=== PATIENT | female | born 1930 | race Caucasian/White ===

== ENCOUNTER → 2016-03-28 | Outpatient (CLI) | payer OTHER ==
[~2016-03-28] MED LIST: AMLO-110 PO; ASCA500 PO; CALC-51 PO; CHOL1000 PO; CO Q10 PO; FISHOIL PO; FLAX12003 PO; JOINT FORMULA PO; METO25TA3 PO; PTU50 PO; TRAM-10 PO; UBIQ1CAP PO; [UNRECOGNIZED DRUG - CODE] PO; [UNRECOGNIZED DRUG - OTHER] PO
[2016-03-28 10:01] LABS: THYROID STIMULATING HORMONE 0.012 uIu/ml (0.300-4.500)
== END | disposition home or self-care (01) ==
LOC: C.LABFOXMH 09:18
PROVIDERS: ATTEND Internal Medicine Endocrinology, Diabetes & Metabolism
DX: E05.90 Thyrotoxicosis, unspecified without thyrotoxic crisis or storm (principal)

== ENCOUNTER → 2016-05-01 | Outpatient (CLI) | payer OTHER ==
--- NOTE | 2016-05-01 12:19 | DIAGNOSTIC IMAGING REPORT ---
LUMBAR SPINE MRI HISTORY: LUMBAR RADICULOPATHY TECHNIQUE: Multiplanar multisequence MRI of the lumbar spine was performed without the use of contrast. COMPARISON: Lumbar spine 03/24/2016. FINDINGS: For the purpose of the report the L5-S1 disc space will be located on axial image 27 of 30. Levoscoliosis of the lumbar spine. There is 2 mm of anterolisthesis of L4 and L5. The conus terminates at the L1-L2 disc space. There is posterior decompression and fusion from L3 through S1 with pedicle screws and rods. There is a fluid collection at the laminectomy sites which measures 5.5 x 3.0 x 2.0 cm. This does not clearly connect to the thecal sac and favors a postoperative seroma. This does not result in mass effect along the thecal sac. The visualized retroperitoneal soft tissues are unremarkable. There are severe disc space narrowing within the lower thoracic spine with associated broad-based posterior disc bulges resulting in mild to moderate central canal at T10-11, T11-T12, and T12-L1. There is clumping of the nerve roots from the L3-S1 level consistent with arachnoiditis. There is also severe disc space narrowing at L1-L2 and L2-L3. L1-L2: Broad-based posterior disc bulge with ligamentum and facet hypertrophy resulting in mild to moderate central canal and moderate bilateral neural foraminal narrowing. There is also a central/right paracentral focal area of signal abnormality at the epidural space posterior to the L2 vertebral body which is both T1 and T2 hyperintense. Therefore, this is consistent with fat. This measures 10 x 6 mm. L2-L3: Tiny broad-based posterior disc bulge with facet hypertrophy resulting in mild central canal and moderate bilateral neural foraminal narrowing. L3-L4: No central canal narrowing. Mild bilateral neural foraminal narrowing due to the facet hypertrophy. L4-L5: No central canal narrowing. Mild right-sided neural foraminal narrowing. L5-S1: No central canal or neural foraminal narrowing. IMPRESSION: 1. Posterior decompression and fusion from L3 through S1 with pedicle screws and rods. There is no significant central canal narrowing at the levels. However, there is clumping of the nerve root at this levels consistent with an arachnoiditis. 2. Fluid collection at the laminectomy sites likely represents a seroma. 3. Severe degenerative disease within the lower thoracic and upper lumbar spine as described above most pronounced at the L1-L2 level where there is associated moderate central canal and moderate bilateral neural foraminal narrowing. 4. A 10 x 6 mm fat-containing epidural lesion posterior to the L2 vertebral body. This may represent a small lipoma. This does not result in displacement of the nerve roots at this level. Electronically signed by: Roberto Jaimes M.D. 05/01/2016 12:17 PM Dictated Date/Time: 05/01/2016 11:59 AM
== END | disposition home or self-care (01) ==
LOC: C.MRIBC 10:09
PROVIDERS: ATTEND Internal Medicine
DX: M54.16 Radiculopathy, lumbar region (principal)

== ENCOUNTER → 2016-06-30 | Outpatient (CLI) | payer OTHER ==
--- NOTE | 2016-06-30 13:28 | DIAGNOSTIC IMAGING REPORT ---
L-SPINE MIN 4 VIEWS ROUTINE CLINICAL HISTORY: BACK PAIN COMPARISON STUDY: 03/24/2016 FINDINGS: There are postsurgical changes of a laminectomy and spinal fusion from the L3-S1 levels. There is posterior pedicle screw fixation. There is a grade 1 spondylolisthesis of L4 and L5. There is a thoracolumbar S shaped scoliosis. There are no acute fractures. There are degenerative changes with multilevel disc space narrowing and osteophyte formation. There is a total left hip arthroplasty. IMPRESSION: Postsurgical change. Advanced multilevel degenerative change. No acute fractures. Electronically signed by: Carlos Beaulieu M.D. 06/30/2016 1:26 PM Dictated Date/Time: 06/30/2016 1:24 PM
== END | disposition home or self-care (01) ==
LOC: C.RADBC 13:01
PROVIDERS: ATTEND Internal Medicine
DX: M54.5 Low back pain (principal); E78.00 Pure hypercholesterolemia, unspecified

== ENCOUNTER → 2016-06-30 | Outpatient (CLI) | payer OTHER ==
[2016-06-30 09:11] LABS: BLOOD UREA NITROGEN 24 mg/dl (7-18); GLUCOSE 90 mg/dl (70-99)
[2016-06-30 09:12] LABS: ALT/SGPT 28 U/L (12-78); BUN/CREATININE RATIO 21.9 (10-20); CARBON DIOXIDE 28 mmol/L (21-32); CHLORIDE 108 mmol/L (98-107); CHOLESTEROL 250 mg/dl (0-200); POTASSIUM 4.3 mmol/L (3.5-5.1); SODIUM 143 mmol/L (136-145); TRIGLYCERIDES 126 mg/dl (0-150); VERY LOW DENSITY LIPOPROT CALC 25 mg/dl
[2016-06-30 09:13] LABS: CALCIUM 9.7 mg/dl (8.5-10.1)
[2016-06-30 09:14] LABS: ALB/GLOB RATIO 1.1 (0.9-2); ALKALINE PHOSPHATASE 76 U/L (45-117); AST/SGOT 25 U/L (15-37); CHOLESTEROL/HDL RATIO 2.8; HDL CHOLESTEROL 88 mg/dl; LDL CHOLESTEROL CALCULATED 137 mg/dl
== END ==
LOC: C.LABFOXMH 08:47
PROVIDERS: ATTEND Internal Medicine
DX: E78.00 Pure hypercholesterolemia, unspecified (principal)

== ENCOUNTER → 2016-07-12 | Day surgery (SDC) | payer OTHER ==
[2016-07-04 13:26] VITALS: Ht 156.2 cm; Wt 58.2 kg
[~2016-07-12] VITALS: Ht 156.2 cm; Wt 58.2 kg
[~2016-07-12] MED LIST changes: -ASCA500 PO; -CO Q10 PO; -FLAX12003 PO; +LIDOCAINE HCL 2% 2 ML VIAL (20MG/ML) ONE; +PROPOFOL IV EMULSION 10 MG/ML 20 ML VIAL IV ONE; +SODIUM CHLORIDE 0.9% 500ML 500 ML IV ONE; -[UNRECOGNIZED DRUG - OTHER] PO
--- NOTE | 2016-07-12 14:24 | Endo History and Physical ---
History & Physical Date of Service: July 12, 2016. Chief Complaint: dysphagia Referring Physician: Dr. Vences History of Present Illness dysphagia Past Medical History Arthritis, Hypertension Past Surgical History Hx Cardiac Surgery: No Hx Internal Defibrillator: No Hx Pacemaker: No Hx Abdominal Surgery: Yes (BOWEL OBSTRUCTION RELEASE, CONCEPCION BSO) Hx of Implantable Prosthesis: No Hx Post-Op Nausea and Vomiting: No Hx Cancer Surgery: No Hx Thoracic Surgery: No Hx Orthopedic: Yes (L3-S1 FUSION, RT TSA, LT JAVID, LT/RT BUNIONECTOMY) Hx Urinary Tract Surgery: No Family History None Social History Smoking Status: Never Smoker Hx Substance Use: No Hx Alcohol Use: Yes (1 GLASS WINE DAILY) Allergies Coded Allergies: Hornet Venom (Verified Allergy, Severe, ANAPHYLAXIS, 07/04/16) Wasp (Verified Allergy, Severe, ANAPHYLAXIS, 07/04/16) Sulfa Antibiotics (Verified Allergy, Mild, "SULFA DRUGS": DERMATITIS, 07/04) Amoxicillin (Verified Allergy, Unknown, RASH AND ITCHING, 07/04/16) Erythromycin (Verified Allergy, Unknown, RASH AND ITCHING, 07/04/16) Penicillins (Verified Allergy, Unknown, RASH AND ITCHING, 07/04/16) Current Medications Reported Home Medications Medications Dose Route/Sig Max Daily Dose Days Date Category Grape Seed (Bioflavonoid Products) 1 Cap Cap 1 Cap PO QAM 07/04/16 Reported [Joint Formula] 1 Tab PO QAM 07/04/16 Reported Ultra Coq10 (Ubiquinone) 75 Mg Cap 1 Cap PO QAM 07/04/16 Reported Vitamin D3 (Cholecalciferol) 1,000 Unit Tab 1 Tab PO QAM 07/04/16 Reported Ultram (Tramadol HCl) 50 Mg Tab 5 Tab PO TID PRN 07/04/16 Reported Ptu (Propylthiouracil) 50 Mg Tab 50 Mg PO QAM 07/04/16 Reported [Calcium] 1 Tab PO BID 11/24/15 Reported [place]-3 (Fish Oil) Oil 1-2 Cap PO QAM 01/01/12 Reported Toprol-Xl (Metoprolol Succinate) 25 Mg Tabcr 0.5 Tab PO QAM 03/10/11 Reported Norvasc (Amlodipine Besylate) 5 Mg Tab 5 Mg PO AFTERNOON 08/06/10 Reported Vital Signs Weight (Kilograms): 58.18 Height (Feet): 5 Height (Inches): 1.5 Date Time Temp Pulse Resp B/P Pulse Ox O2 Delivery O2 Flow Rate FiO2 07/12/16 13:40 36.6 58 20 155/79 95 Room Air Physical Exam AAOx3 Nls1s2 Lungs CTA Abd soft NT/ND + BS - CCE Assessment and Plan EGD with possible dilation
--- NOTE | 2016-07-12 14:40 | Discharge Instructions ---
Endoscopy Patient Instructions Date / Procedure(s) Performed July 12, 2016. EGD Allergy Information Coded Allergies: Hornet Venom (Verified Allergy, Severe, ANAPHYLAXIS, 07/04/16) Wasp (Verified Allergy, Severe, ANAPHYLAXIS, 07/04/16) Sulfa Antibiotics (Verified Allergy, Mild, "SULFA DRUGS": DERMATITIS, 07/04) Amoxicillin (Verified Allergy, Unknown, RASH AND ITCHING, 07/04/16) Erythromycin (Verified Allergy, Unknown, RASH AND ITCHING, 07/04/16) Penicillins (Verified Allergy, Unknown, RASH AND ITCHING, 07/04/16) Discharge Date / Findings July 12, 2016. esophagitis Schatzki ring gastric ulcers HH Medication Instructions Restart Stopped Medication(s): Reported Home Medications Medications Dose Route/Sig Max Daily Dose Days Date Category Grape Seed (Bioflavonoid Products) 1 Cap Cap 1 Cap PO QAM 07/04/16 Reported [Joint Formula] 1 Tab PO QAM 07/04/16 Reported Ultra Coq10 (Ubiquinone) 75 Mg Cap 1 Cap PO QAM 07/04/16 Reported Vitamin D3 (Cholecalciferol) 1,000 Unit Tab 1 Tab PO QAM 07/04/16 Reported Ultram (Tramadol HCl) 50 Mg Tab 5 Tab PO TID PRN 07/04/16 Reported Ptu (Propylthiouracil) 50 Mg Tab 50 Mg PO QAM 07/04/16 Reported [Calcium] 1 Tab PO BID 11/24/15 Reported [place]-3 (Fish Oil) Oil 1-2 Cap PO QAM 01/01/12 Reported Toprol-Xl (Metoprolol Succinate) 25 Mg Tabcr 0.5 Tab PO QAM 03/10/11 Reported Norvasc (Amlodipine Besylate) 5 Mg Tab 5 Mg PO AFTERNOON 08/06/10 Reported Reported Home Medications Medications Dose Route/Sig Max Daily Dose Days Date Category Grape Seed (Bioflavonoid Products) 1 Cap Cap 1 Cap PO QAM 07/04/16 Reported [Joint Formula] 1 Tab PO QAM 07/04/16 Reported Ultra Coq10 (Ubiquinone) 75 Mg Cap 1 Cap PO QAM 07/04/16 Reported Vitamin D3 (Cholecalciferol) 1,000 Unit Tab 1 Tab PO QAM 07/04/16 Reported Ultram (Tramadol HCl) 50 Mg Tab 5 Tab PO TID PRN 07/04/16 Reported Ptu (Propylthiouracil) 50 Mg Tab 50 Mg PO QAM 07/04/16 Reported [Calcium] 1 Tab PO BID 11/24/15 Reported [place]-3 (Fish Oil) Oil 1-2 Cap PO QAM 01/01/12 Reported Toprol-Xl (Metoprolol Succinate) 25 Mg Tabcr 0.5 Tab PO QAM 03/10/11 Reported Norvasc (Amlodipine Besylate) 5 Mg Tab 5 Mg PO AFTERNOON 08/06/10 Reported Provider Instructions Activity Restrictions - No exercising or heavy lifting for 24 hours. - Do not drink alcohol the day of the procedure. - Do not drive a car or operate machinery until the day after the procedure. - Do not make any important decisions or sign important papers in 24 hours after the procedure. Following Day: - Return to full activity which may include returning to work/school. Diet Start your diet with liquids and light foods (jello, soup, juice, toast). Then eat your usual diet if not nauseated. Treatment For Common After Affects For mild abdominal pain, bloating, or excessive gas: - Rest - Eat lightly - Lie on right side Follow-Up Information Follow-up with Dr. Vences as scheduled Anesthesia Information What You Should Know You have had a procedure that required some medicine to reduce anxiety and discomfort. This treatment is called moderate sedation. After receiving the treatment, you may be sleepy, but you will be able to breathe on your own. The effects of the treatment may last for several hours. Follow these instructions along with Activity/Diet recommendations noted above: * Do NOT do anything where dizziness or clumsiness would be dangerous. * Rest quietly at home today, then you can be up and about tomorrow. * Have a responsible person stay with you the rest of today. * You may have had an I.V. today. If so, you may take the dressing off later today. Recommendations Call your doctor if: * Trouble breathing * Continuous vomiting for more than 24 hours * Temperature above 101 degrees * Severe abdominal pain or bloating * Pain not relieved by pain medicine ordered * There is increased drainage or redness from any incision * A large amount of rectal bleeding greater than 2-3 tablespoons. (If you had a polyp/s removed or have hemorrhoids, a small amount of blood - from the rectum is to be expected.) * You have any unanswered questions or concerns. IN THE EVENT OF A SERIOUS EMERGENCY, GO TO THE NEAREST EMERGENCY ROOM Your discharge instructions were prepared by provider Umair Chapman. Patient Instructions Signature Page Brody Larsen Patient (or Guardian) Signature/Date: I have read and understand the instructions given to me by my caregivers. Caregiver/RN/Doctor Signature/Date: The above-named patient and/or guardian has received patient instructions on this date. + Original Patient Signature Page (only) stays with chart. Please make copy for patient.
--- NOTE | 2016-07-12 14:51 | GI REPORT ---
Procedure Date: 07/12/2016 2:15 PM Procedure: Upper GI endoscopy Indications: Esophageal dysphagia Medicines: Propofol per Anesthesia Complications: No immediate complications. Estimated blood loss: Minimal. Estimated Blood Loss: Estimated blood loss was minimal. Procedure: Pre-Anesthesia Assessment: - Prior to the procedure, a History and Physical was performed, and patient medications and allergies were reviewed. The patient's tolerance of previous anesthesia was also reviewed. The risks and benefits of the procedure and the sedation options and risks were discussed with the patient. All questions were answered, and informed consent was obtained. Prior Anticoagulants: The patient has taken no previous anticoagulant or antiplatelet agents. ASA Grade Assessment: II - A patient with mild systemic disease. After reviewing the risks and benefits, the patient was deemed in satisfactory condition to undergo the procedure. After obtaining informed consent, the endoscope was passed under direct vision. Throughout the procedure, the patient's blood pressure, pulse, and oxygen saturations were monitored continuously. The scope was introduced through the mouth, and advanced to the second part of duodenum. The upper GI endoscopy was accomplished without difficulty. The patient tolerated the procedure well. Findings: The upper third of the esophagus and middle third of the esophagus were normal. LA Grade B (one or more mucosal breaks greater than 5 mm, not extending between the tops of two mucosal folds) esophagitis with no bleeding was found 34 to 35 cm from the incisors. A low-grade of narrowing Schatzki ring (acquired) was found at the gastroesophageal junction. A guidewire was placed and the scope was withdrawn. Dilation was performed with a Savary dilator with mild resistance at 54 Fr. Estimated blood loss was minimal. Three non-bleeding superficial gastric ulcers with no stigmata of bleeding were found in the gastric antrum. The largest lesion was 10 mm in largest dimension. Biopsies were taken with a cold forceps for histology. The examined duodenum was normal. Retained gastric contents are not identified on this exam. The cardia and gastric fundus were normal on retroflexion. Impression: - Normal upper third of esophagus and middle third of esophagus. - LA Grade B reflux esophagitis. - Low-grade of narrowing Schatzki ring. Dilated. - Non-bleeding gastric ulcers with no stigmata of bleeding. Biopsied. - Normal examined duodenum. Recommendation: - Discharge patient to home (ambulatory). - Patient has a contact number available for emergencies. The signs and symptoms of potential delayed complications were discussed with the patient. Return to normal activities tomorrow. Written discharge instructions were provided to the patient. - Resume regular diet. - Continue present medications. - Use Prilosec (omeprazole) 40 mg PO daily. - Repeat the upper endoscopy for surveillance based on pathology results. - Return to GI clinic as previously scheduled. MD Umiar Hernandez MD 07/12/2016 2:51:29 PM This report has been signed electronically. Note Initiated On: 07/12/2016 2:15 PM I attest to the content of the Intraoperative Record and orders documented therein, exceptions below
[2016-07-12 15:12] VITALS: BP 151/90; PULSE 55; O2SAT 96
--- NOTE | 2016-07-12 15:21 | Anesthesiology Progress Note ---
Anesthesia Post Op Note Date & Time July 12, 2016 at 15:21 Vital Signs Pain Intensity: 2 Vital Signs Past 12 Hours Date Time Temp Pulse Resp B/P Pulse Ox O2 Delivery O2 Flow Rate FiO2 07/12/16 14:56 61 20 131/66 95 Room Air 07/12/16 14:41 62 20 100/52 96 Room Air 07/12/16 13:40 36.6 58 20 155/79 95 Room Air Notes Mental Status: alert / awake / arousable, participated in evaluation Pt Amnestic to Procedure: Yes Nausea / Vomiting: adequately controlled Pain: adequately controlled Airway Patency, RR, SpO2: stable & adequate BP & HR: stable & adequate Hydration State: stable & adequate Anesthetic Complications: no major complications apparent
== END | disposition home or self-care (01) ==
LOC: C.GI 13:07
PROVIDERS: ATTEND Internal Medicine Gastroenterology
DX: R13.10 Dysphagia, unspecified (principal); K21.0 Gastro-esophageal reflux disease with esophagitis; K22.2 Esophageal obstruction; K25.9 Gastric ulcer, unspecified as acute or chronic, without hemorrhage or perforation; I10 Essential (primary) hypertension; M19.90 Unspecified osteoarthritis, unspecified site; Z68.24 Body mass index [BMI] 24.0-24.9, adult; Z88.1 Allergy status to other antibiotic agents; Z88.0 Allergy status to penicillin; Z88.2 Allergy status to sulfonamides; Z96.642 Presence of left artificial hip joint; Z98.890 Other specified postprocedural states

== ENCOUNTER → 2016-08-21 | Outpatient (CLI) | payer OTHER ==
[~2016-08-21] MED LIST changes: -LIDOCAINE HCL 2% 2 ML VIAL (20MG/ML) ONE; -PROPOFOL IV EMULSION 10 MG/ML 20 ML VIAL IV ONE; -SODIUM CHLORIDE 0.9% 500ML 500 ML IV ONE; -TRAM-10 PO
[2016-08-21 10:37] LABS: ALKALINE PHOSPHATASE 85 U/L (45-117); ALT/SGPT 30 U/L (12-78); AST/SGOT 29 U/L (15-37); THYROID STIMULATING HORMONE 0.162 uIu/ml (0.300-4.500)
[2016-08-24 15:36] LABS: TSI <89 % baseline (<140)
== END | disposition home or self-care (01) ==
LOC: C.LABFOXMH 08:37
PROVIDERS: ATTEND Internal Medicine Endocrinology, Diabetes & Metabolism
DX: E04.2 Nontoxic multinodular goiter (principal)

== ENCOUNTER → 2017-05-10 | Outpatient (CLI) | payer OTHER ==
[~2017-05-10] MED LIST changes: -AMLO-110 PO
[2017-05-10 12:01] LABS: ALBUMIN 3.5 gm/dl (3.4-5.0); ALT/SGPT 27 U/L (12-78); BLOOD UREA NITROGEN 22 mg/dl (7-18); CALCIUM 9.8 mg/dl (8.5-10.1); CARBON DIOXIDE 30 mmol/L (21-32); GLUCOSE 90 mg/dl (70-99); LIPASE 150 U/L (73-393); POTASSIUM 4.8 mmol/L (3.5-5.1); SODIUM 140 mmol/L (136-145)
[2017-05-10 12:04] LABS: ALKALINE PHOSPHATASE 78 U/L (45-117); AST/SGOT 22 U/L (15-37); TOTAL PROTEIN 6.7 gm/dl (6.4-8.2)
== END | disposition home or self-care (01) ==
LOC: C.LABFOXMH 11:27
PROVIDERS: ATTEND Internal Medicine Hospice and Palliative Medicine
DX: R10.11 Right upper quadrant pain (principal)

== ENCOUNTER → 2017-05-18 | Outpatient (CLI) | payer OTHER ==
[2017-05-18 11:13] LABS: THYROXINE (T4) 6.6 mcg/dl (4.5-10.9)
== END | disposition home or self-care (01) ==
LOC: C.LABFOXMH 07:39
PROVIDERS: ATTEND Internal Medicine
DX: E03.9 Hypothyroidism, unspecified (principal)

== ENCOUNTER 2021-05-31 10:39 | Observation (INO) ==
--- NOTE | 2021-05-09 12:13 | PAT Medication Instructions ---
Medication Instructions Date of Service May 09, 2021 Home Medications propylthiouracil 50 mg tablet 50 mg PO BID diclofenac sodium 1 % topical gel (Voltaren Arthritis Pain) 2 g TOPICAL BID metoprolol succinate 25 mg tablet,extended release 24 hr 25 mg PO QAM multivitamin (Multiple Vitamins) 1 tab PO QAM acetaminophen 500 mg tablet 500 mg PO Q6H PRN meloxicam 15 mg tablet (Mobic) 15 mg PO QAM ASK your surgeon for instructions meloxicam 15 mg tablet (Mobic) 15 mg PO QAM STOP taking 24 hours before surgery diclofenac sodium 1 % topical gel (Voltaren Arthritis Pain) 2 g TOPICAL BID DO NOT take the morning of surgery multivitamin (Multiple Vitamins) 1 tab PO QAM Take morning of surgery With a small sip of water, OTHERWISE NOTHING TO EAT OR DRINK AFTER MIDNIGHT: propylthiouracil 50 mg tablet 50 mg PO BID metoprolol succinate 25 mg tablet,extended release 24 hr 25 mg PO QAM acetaminophen 500 mg tablet 500 mg PO Q6H PRN(okay to take up to 4 hours prior to surgery if needed) Take evening before surgery propylthiouracil 50 mg tablet 50 mg PO BID acetaminophen 500 mg tablet 500 mg PO Q6H PRN(if needed) Other Notes If you have any questions please call us at [phone] or [phone] or [phone] or [phone]
--- NOTE | 2021-05-10 13:03 | Anesthesiology Consultation ---
Date of Service May 10, 2021 Assessment & Plan (1) Encounter for pre-operative examination: Chart Review Chart Review: Acceptable Risk for Surgery (pending preop Covid testing results ) and Patient seen in Pre Admission Testing -Will fax preop testing to PCP for continuity care per patient request -Due to age- patient is not a Same Day Joint candidate -Discussed with Dr. Bello- hx of MVP with mild to moderate MR on 2015 ECHO- faint I/ murmur- patient can proceed as scheduled Per PAT appt on 05/10/21, patient recently returned from [place]- has private home- no large group activities. Pt resides at [facility]. No known Covid positive exposures or Covid related symptoms. No known Covid infection in the past 90 days. Pt is vaccinated for Covid. Preop Covid testing scheduled 05/27/21= will await results. Educated on importance of self quarantining, social distancing and wearing mask in public for the patient one week prior to surgery and after Covid testing done Teaching & Discussion Pre-Anesthesia Teaching/Discussion Notes: Instructed NPO after midnight before surgery,except medications with 15 cc of water. Medication instructions provided according to the PAT guidelines. History Surgery Operation Date: 05/31/21 09:05 Proposed Procedures p Right Anterior Total Hip Arthroplasty - Andrei Andujar, Height/Weight Height: 5 ft 1 in Weight: 56.7 kg Allergies Allergy/AdvReac Type Severity Reaction Status Date / Time hornet venom Allergy Severe ANAPHYLAXIS Verified 05/09/21 11:07 amoxicillin Allergy Intermediate RASH AND Verified 05/09/21 11:07 ITCHING erythromycin base Allergy Intermediate RASH AND Verified 05/09/21 11:07 ITCHING oxycodone Allergy Intermediate Rash and Verified 05/09/21 11:07 itching Penicillins Allergy Intermediate RASH AND Verified 05/09/21 11:07 ITCHING Sulfa (Sulfonamide Allergy Mild "SULFA Verified 05/09/21 11:07 Antibiotics) DRUGS": DERMATITIS hylan G-F 20 [From Synvisc] Allergy Unknown KNEE Verified 05/09/21 11:09 SWELLING WITH INJECTION Medications Home Medications Medication Instructions Recorded Confirmed Last Taken propylthiouracil 50 mg tablet 50 mg PO BID 02/20/19 05/09/21 09/21/20 diclofenac sodium 1 % topical gel 2 g TOPICAL BID g 10/25/20 05/09/21 Unknown (Voltaren Arthritis Pain) metoprolol succinate 25 mg 25 mg PO QAM tab 10/25/20 05/09/21 Unknown tablet,extended release 24 hr multivitamin (Multiple Vitamins) 1 tab PO QAM 10/25/20 05/09/21 Unknown acetaminophen 500 mg tablet 500 mg PO Q6H PRN 05/09/21 05/09/21 Unknown meloxicam 15 mg tablet (Mobic) 15 mg PO QAM 05/09/21 05/09/21 Unknown Past Medical History Medical History (Updated 05/11/21 @ 09:58 by Jessica Muhammad PA-C) Cardiac murmur Chronic back pain Degenerative disc disease Dysphagia HX- rare occurrence- usually occurs when trying to talk and swallow GERD (gastroesophageal reflux disease) Occasional Hypertension Hyperthyroidism Follows with PCP currently-GRAVES DISEASE MVP (mitral valve prolapse) "HX SINCE CHILD" Mild to moderate MR per 2016 ECHO Spinal stenosis Thyroid nodule Under observation Trigeminal neuralgia HX LEFT SIDE-RESOLVED No current issues Exercise / Class Metabolic Activity II 4-5 Yardwork/Stairs/Walk up hill (one flight of stairs -no chest pain or SOB ) Past Family History Family History Father FHx: heart disease Mother FHx: lung cancer Past Surgical History Surgical History Fusion of spine Lumbar History of anesthesia reaction "long time to get rid of it" History of appendectomy History of cataract surgery bilateral History of colonoscopy History of esophageal dilatation History of esophagogastroduodenoscopy (EGD) History of foot surgery History of tonsillectomy History of total hip arthroplasty left History of total shoulder replacement right Nausea and vomiting after administration of anesthetic agent S/P epidural steroid injection S/P laparotomy with removal of adhesions r/t small bowel obstructions S/P CONCEPCION-BSO S/P thyroid biopsy Past Anesthesia History No Hx of Anesthesia Complications (with exception to PONV; feels that "anesthesia takes longer to get out of her body" ) and No Family Hx of Anesthesia Complications History of PONV History of PONV and Hx of Motion Sickness Social History Smoking Status: Never smoker Do You Dip or Chew Tobacco: No Hx Alcohol Use: Yes Alcohol type: wine alcohol intake frequency: 0-2 drinks per day (1 glass/day ) Hx Substance Use: No substance use type: does not use Review of Systems Patient denies chest pain, shortness of breath, dyspnea on exertion, cough, wheezing, palpitations. No hx of seizures, stroke, PR, apnea/snoring. No hx of blood clots or blood transfusions Physical Exam Vital Signs VITALS BP 160/90 (manually- usually well controlled- checks daily- usually 120's/80's- anxious about surgery) P 66 TEMP 97.9 SP02 96% RESP 16 Constitutional no acute distress ENMT Mouth: no TMJ clicking Thyromental Distance: > or= 3.5 Finger Breadths (3.5) Mallampati Class: III Neck + limited neck extension (moderate to severe ) Respiratory normal respiratory effort; no respiratory distress Auscultation: lungs clear to auscultation bilaterally; no wheezes Cardiovascular Rate/Rhythm: regular rate and regular rhythm Heart Sounds: + murmur (I/ murmur (faint)) Vessels: no carotid bruit Musculoskeletal Spine: no pain with cervical ROM Extremities: extremities normal to inspection Psychiatric Orientation: alert Lab Results Anesthesia Preop Results Results Anesthesia Widget: WBC 5.40 K/uL (4.8-10.8) 05/10/21 Hgb 12.6 g/dL (12.0-16.0) 05/10/21 Hct 37.9 % (37-47) 05/10/21 Plt 318 K/uL (130-400) 05/10/21 Na 137 mmol/L (136-145) 05/10/21 K 4.4 mmol/L (3.5-5.1) 05/10/21 Cl 104 mmol/L (98-107) 05/10/21 CO2 26 mmol/L (21-32) 05/10/21 BUN 37 mg/dl (6-23) H 05/10/21 Creat 1.08 mg/dl (0.6-1.2) 05/10/21 Glucose Level 89 mg/dl (70-99(Fasting)) 05/10/21 PT 10.5 Seconds (9.0-12.0) 05/10/21 PTT 26.6 Seconds (21.0-31.0) 05/10/21 INR 1.0 (0.9-1.1) 05/10/21 TSH 0.300 uIu/ml (0.300-4.500) 05/10/21 Free T4 0.81 ng/dl (0.61-1.60) 05/10/21 Blood Type O Positive 05/10/21 Antibody Screen NEGATIVE 05/10/21 Testing Electrocardiogram Date: 05/10/21 Findings: + NSR @ (65bpm ) Normal EKG per cardio Chest X-Ray Date: 05/10/21 Compared to the previous examination, there is a decreased inspiratory effort with otherwise no acute chest disease. Echocardiogram Date: 11/24/15 EF: 55-60% LV Function: normal (Low normal ) RWMA: + none Other Findings: + LVH (mild/concentric ) and + diastolic dysfunction (Grade I ) Valvular Disease: + MR (mild to moderate ) LA moderately dilated. Mild to moderate TR. RVSP is elevated at 30-40mmHg. Mild AR. Compared to study from 08/07/10- no significant change. Other Testing Brain MRI 09/29/20= No acute intracranial hemorrhage, no midline shift or space occupying lesions. Atrophic changes of brain parenchyma associated with minimal ex vacuo dilatation of ventricles. Chronic small vessel ischemia. Fluid signal within left maxillary sinus which could represent sinusitis. Please correlate above-mentioned findings was prior history and clinical presentation of sinusitis. No evidence of abnormal enhancement.
--- NOTE | 2021-05-26 10:50 | History & Physical Report ---
Date of Service May 26, 2021 Assessment & Plan (1) Osteoarthritis of hip: We will proceed with a right total hip arthroplasty. Postoperatively she will be started on aspirin for DVT prophylaxis and kept overnight in the hospital for postop medical management. She plans to go back to [facility] upon discharge. History of Present Illness Chief Complaint: Osteoarthritis of the right hip. Primary Care Provider: Suzanna Skinner is a pleasant 89-year-old female whose been dealing with chronic worsening right hip and groin pain. X-rays and clinical examination have been diagnostic for advanced osteoarthritis of the right hip. After failing conservative treatment, she elected proceed with a right total hip arthroplasty. She has a history of a left hip replacement done in the past and has done well with that. Allergies Allergy/AdvReac Type Severity Reaction Status Date / Time hornet venom Allergy Severe ANAPHYLAXIS Verified 05/09/21 11:07 amoxicillin Allergy Intermediate RASH AND Verified 05/09/21 11:07 ITCHING erythromycin base Allergy Intermediate RASH AND Verified 05/09/21 11:07 ITCHING oxycodone Allergy Intermediate Rash and Verified 05/09/21 11:07 itching Penicillins Allergy Intermediate RASH AND Verified 05/09/21 11:07 ITCHING Sulfa (Sulfonamide Allergy Mild "SULFA Verified 05/09/21 11:07 Antibiotics) DRUGS": DERMATITIS hylan G-F 20 [From Synvisc] Allergy Unknown KNEE Verified 05/09/21 11:09 SWELLING WITH INJECTION Home Medications Medication Instructions Recorded Confirmed Type propylthiouracil 50 mg tablet 50 mg PO BID 02/20/19 05/09/21 History diclofenac sodium 1 % topical gel 2 g TOPICAL BID g 10/25/20 05/09/21 History (Voltaren Arthritis Pain) metoprolol succinate 25 mg 25 mg PO QAM tab 10/25/20 05/09/21 History tablet,extended release 24 hr multivitamin (Multiple Vitamins) 1 tab PO QAM 10/25/20 05/09/21 History acetaminophen 500 mg tablet 500 mg PO Q6H PRN 05/09/21 05/09/21 History meloxicam 15 mg tablet (Mobic) 15 mg PO QAM 05/09/21 05/09/21 History Past Med/Surg History Medical History Cardiac murmur Chronic back pain Degenerative disc disease Dysphagia HX- rare occurrence- usually occurs when trying to talk and swallow GERD (gastroesophageal reflux disease) Occasional Hypertension Hyperthyroidism Follows with PCP currently-GRAVES DISEASE MVP (mitral valve prolapse) "HX SINCE CHILD" Mild to moderate MR per 2016 ECHO Spinal stenosis Thyroid nodule Under observation Trigeminal neuralgia HX LEFT SIDE-RESOLVED No current issues Surgical History Fusion of spine Lumbar History of anesthesia reaction "long time to get rid of it" History of appendectomy History of cataract surgery bilateral History of colonoscopy History of esophageal dilatation History of esophagogastroduodenoscopy (EGD) History of foot surgery History of tonsillectomy History of total hip arthroplasty left History of total shoulder replacement right Nausea and vomiting after administration of anesthetic agent S/P epidural steroid injection S/P laparotomy with removal of adhesions r/t small bowel obstructions S/P CONCEPCION-BSO S/P thyroid biopsy Family History Father FHx: heart disease Mother FHx: lung cancer Social History Smoking Status: Never smoker Second Hand Exposure: No; Hx Alcohol Use: Yes Alcohol type: wine Hx Substance Use: No Preferred Language: Jordanian Communication Ability: Effective Weather Forcaster Required: No Beliefs That Will Affect Care: None Current Living Situation: Spouse Current Living Situation Comment: lives in [facility] current occupational status: retired Feels Safe at Home: Yes Assistive Devices: Cane and Glasses Review of Systems All systems reviewed & are unremarkable except as noted in HPI & below. Physical Exam On physical examination of her right hip she has pain with range of motion. She has pain with flexion. Her leg lengths are equal. Constitutional WD/WN, vitals as above Eyes PERRL, conjunctivae normal, anicteric sclerae ENMT external ear and nose normal, oropharynx normal Neck trachea midline, no thyromegaly Respiratory normal respiratory effort Cardiovascular RRR, no murmur, no edema Gastrointestinal (Abdomen) normal bowel sounds, soft, nontender, no hepatosplenomegaly Psychiatric A+Ox3, euthymic affect Results & Data Results & Data Laboratory Results . Diagnostic Findings X-rays of the right hip show advanced osteoarthritis with joint space narrowing, osteophyte formation, and risi-fu-zbrb articulation. PG Care Time/CCT Total # of Minutes Spent Total Time Spent with Patient: Total time spent is greater than 50% in coordination of care (as documented) at patient's floor/unit and/or counseling patient: Coding Level of Care Code None Diagnoses Osteoarthritis of hip M16.9
[~2021-05-31 10:39] MED LIST changes: +ACETAMINOPHEN 500 MG TAB PO SCH; +BUPIVACAINE 0.5 % 5 MG/1 ML PF 10ML VIAL ONE; -CALC-51 PO; -CHOL1000 PO; +FAMOTIDINE 20 MG TAB PO SCH; -FISHOIL PO; +GABAPENTIN 300 MG CAP PO SCH; -JOINT FORMULA PO; +Ketorolac (*for OR use only*) 30 MG, dexAMETHasone 4 MG, KETAMINE HCL (**OR use only) 1... INFIL SCH; +LR 500ML BOLUS, THEN 15ML/HR IV SCH; +LR 60ML/HR IV SCH; -METO25TA3 PO; -PTU50 PO; +TRANEXAMIC ACID 1,000 MG **IV Intra-op IV SCH; +TRANEXAMIC ACID 1,000 MG **IV Pre-op IV SCH; -UBIQ1CAP PO; -[UNRECOGNIZED DRUG - CODE] PO; +ceFAZolin 1000MG 1,000 MG/7.5 ML SYR IV SCH; +dexAMETHasone 4 MG TAB PO SCH
--- NOTE | 2021-05-31 10:48 | History & Physical Bridge Note ---
Date of Service May 31, 2021 History & Physical Bridge Note I have examined the patient, reviewed the History & Physical and in the interval since the performance of the History & Physical I have noted the following changes of clinical significance: no changes noted
[2021-05-31] MEDS ORDERED: ceFAZolin 1000MG 1,000 MG/7.5 ML SYR IV ONE (11:51)
[2021-05-31] MEDS ORDERED: Nursing to Pharmacy Communication SCH (12:00)
[2021-05-31] MEDS ORDERED: MIDAZOLAM HCL 1 MG/ML 2ML VIAL ONE (12:26)
[2021-05-31] MEDS ORDERED: ATROPINE SULFATE 0.1 MG/ML 10ML SYR IV PRN (12:38)
[2021-05-31] MEDS ORDERED: ePHEDrine sulfate 50 MG/ML AMP IV PRN (12:38)
[2021-05-31] MEDS ORDERED: ONDANSETRON INJ 2 MG/ML 2 ML VIAL IV PRN ×2 (12:38→16:35)
[2021-05-31] MEDS ORDERED: fentaNYL citrate 100 MCG/2 ML VIAL IV PRN (12:38)
[2021-05-31] MEDS ORDERED: ONDANSETRON INJ 2 MG/ML 2 ML VIAL ONE (13:01)
[2021-05-31] MEDS ORDERED: fentaNYL citrate 100 MCG/2 ML VIAL ONE (13:01)
[2021-05-31] MEDS ORDERED: ORTHO JOINT ANESTHETIC ONE (13:04)
[2021-05-31] MEDS ORDERED: PROPOFOL IV EMULSION 10 MG/ML 20 ML VIAL IV ONE (13:18)
[2021-05-31] MEDS ORDERED: ePHEDrine sulfate 50 MG/ML AMP ONE (14:03)
--- NOTE | 2021-05-31 15:02 | Operative Report ---
PG Post Operative Report Pre & Post Diagnosis Operation Date: 05/31/21 12:45 Pre-Op Diagnosis: Osteoarthritis of Right Hip Post-Op Diagnosis: Osteoarthritis of Right Hip I identified the patient and participated in the time-out.: Yes Procedure Operation Date: 05/31/21 12:45 Actual Procedures p Right Anterior Total Hip Arthroplasty(Right) - Andrei Andujar DO Surgeon Andrei Andujar, Configuration Release Manager Andrei Power PAC Estimated Blood Loss 250 Findings Consistent with Post-Op Diagnosis Specimens Right femoral head Complications none Disposition Disposition: Recovery Room Indications Brody is a pleasant 89-year-old female who is been dealing with chronic incre asing right hip and groin pain. X-rays clinical examination are diagnostic for advanced arthritis of the right hip. After failing conservative treatment, she elected proceed with a right anterior total hip arthroplasty. Description of Procedure Implants used I used a [employer]immer[employer]omet total hip arthroplasty system with a size 1 standard o ffset Avenir Complete stem, a 50 mm G7 cup with a 25mm screw, an E1 polyethylene liner, a 36 mm ceramic head with a +3.5 neck. Brody arrived at the hospital for the above procedure. She was seen in the preoperative holding area and the operative extremity was identified and signed. She was given a spinal anesthetic, a preoperative antibiotic, and TXA. She was then taken back to the operating room and laid on the table in the supine position. She was given basic sedation. The operative leg was secured to a Puristst leg positioner. The hip was then prepped and draped in sterile fashion. A timeout was done and the patient and the operative extremity was properly identified. An anterior approach was used. Dissection was taken down through the fascia and the tensor muscle belly was retracted laterally and the rectus was retracted medially. The circumflex vessels were identified and ligated. The capsule was then incised and tagged for later repair. The femoral neck was then cut and the femoral head was removed. The acetabulum was exposed. Time was spent doing a complete circumferential labral release. Sequential reaming of the acetabulum up to a size 49 reamer was done. Final reamings were done under fluoroscopy to ensure appropriate version. A Biomet 50mm G7 cup was then impacted into place. A single 25 mm screw was placed. The E1 polyethylene liner was then snapped into place. Surrounding soft tissues were then injected with 100 cc of an orthopedic pain control cocktail. The proximal femur was then exposed. Sequential broaching up to a size 1 broach was done. Off that broach a size 36 head with a +3.5 neck was trialed. The hip was reduced and fluoroscopic images showed anatomic alignment of the implants in acceptable length. The broach was removed. The final size 1 standard offset Avenir Complete stem was then impacted into place. A ceramic 36mm head with a +3.5 neck was then impacted onto the stem and the hip was reduced. Final fluoroscopic images showed anatomic alignment of the hip. The capsule was then closed with #1 Vicryl suture. A dilute betadyne lavage was then done for 3 minutes. The joint was then irrigated with normal saline solution. The fascia was closed with #1 PDS suture. Skin was closed with 2-0 Vicryl, erik, and a Silverlon dressing. She was then transferred to a hospital bed and taken to the post anesthesia care unit in stable condition. She tolerated the procedure well. Andrei Power PA-C, was present for the entire procedure. He was critical for patient positioning, prepping, draping, retraction exposure, wound closure and application of sterile dressing. I attest to the content of the Intraoperative Record and any orders documented therein. Any exceptions are noted below.
--- NOTE | 2021-05-31 15:11 | Fluoroscopy Report ---
FL hip RT 1V CLINICAL HISTORY: RIGHT ANTERIOR TOTAL HIP ARTHROPLASTY COMPARISON STUDY: None. FLUOROSCOPY TIME: 16 seconds. FINDINGS: 2 fluoroscopic spot images of the right hip demonstrate a right total hip arthroplasty. The hardware is intact. No fracture or dislocation. IMPRESSION: Fluoroscopic assistance provided for right total hip arthroplasty. ACT 112: Negative or not required by law. Electronically signed by: Roberto Jaimes M.D. 05/31/2021 3:10 PM
--- NOTE | 2021-05-31 15:44 | XRay Report ---
XR hip 1V RT w pelvis CLINICAL HISTORY: IN PACU - A/P PELVIS and LATERAL HIP TECHNIQUE: 2 views of the right hip and single frontal view of the pelvis were obtained. Comparison: Comparison is made to pelvis and hip radiograph 12/03/2015 FINDINGS: Patient is status post total hip arthroplasty with expected postsurgical changes including soft tissu e swelling, subcutaneous emphysema, and surgical staple placement. No periarticular lucency or hardwa re fracture is seen. The alignment is anatomic. Left total hip arthroplasty is unchanged. No soft ti ssue abnormality is seen. IMPRESSION: Expected postoperative appearance status post placement of total hip arthroplasty. ACT 112: Negative or not required by law. Electronically signed by: Cosme Mathews M.D. 05/31/2021 3:43 PM
--- NOTE | 2021-05-31 16:01 | Anesthesiology Progress Note ---
Date of Service May 31, 2021 Anesthesia Post Procedure Vital Signs Vital Signs: Temp Pulse Pulse Resp BP BP Pulse Ox 05/31/21 15:45 63 14 148/77 H 93 05/31/21 15:35 61 16 143/74 H 93 05/31/21 15:25 64 17 147/73 H 95 05/31/21 15:15 66 20 137/81 96 05/31/21 15:08 36.5 C 62 16 138/73 97 05/31/21 11:04 36.8 C 65 20 135/90 98 Transfer of Care Handoff Completed per policy Notes Mental Status: alert / awake / arousable Patient Amnestic to Procedure: Yes Nausea / Vomiting: adequately controlled Pain: adequately controlled Airway Patency, RR, SpO2: stable & adequate BP & HR: stable & adequate Hydration State: stable & adequate Neuraxial Anesthesia: was administered and sensory block is resolving Anesthetic Complications: no major complications apparent
[2021-05-31] MEDS ORDERED: NALOXONE HCL 0.4 MG/1 ML VIAL/CARP IV PRN (16:35)
[2021-05-31] MEDS ORDERED: MAGNESIUM HYDROXIDE SUSP 30 ML UDC PO PRN (16:35)
[2021-05-31] MEDS ORDERED: diphenhydrAMINE 50 MG/ML VIAL IV PRN (16:35)
[2021-05-31] MEDS ORDERED: SODIUM CHLORIDE 0.9% 1000ML 1,000 ML IV SCH (16:35)
[2021-05-31] MEDS ORDERED: HYDROmorphone INJ 0.5 MG/0.5 ML SYR IV PRN (16:35)
[2021-05-31] MEDS ORDERED: bisacodyL 10 MG SUPP PR PRN (16:35)
[2021-05-31] MEDS ORDERED: oxyCODONE HCL IR 5 MG TAB (IMMEDIATE RELEASE) PO PRN (16:35)
[2021-05-31] MEDS ORDERED: METOCLOPRAMIDE HCL INJ 5 MG/ML 2 ML VIAL IV PRN (16:35)
[2021-05-31] MEDS: KETOROLAC TROMETHAMINE 15 MG/ML VIAL IV SCH ×2 (17:18→22:24)
[2021-05-31] MEDS: DOCUSATE SODIUM 100 MG CAP PO SCH (21:00)
[2021-05-31] MEDS: ASPIRIN 81 MG ECTAB PO SCH (21:00)
[2021-05-31] MEDS ORDERED: SENNA 8.6 MG TAB PO SCH (21:00)
[2021-05-31] MEDS: ceFAZolin 2000MG 2,000 MG/15 ML SYR IV SCH (21:01)
[2021-05-31] MEDS: ACETAMINOPHEN 500 MG TAB PO SCH (22:22)
[2021-06-01] MEDS: ceFAZolin 2000MG 2,000 MG/15 ML SYR IV SCH (05:56)
[2021-06-01] MEDS: KETOROLAC TROMETHAMINE 15 MG/ML VIAL IV SCH ×2 (05:58→11:53)
[2021-06-01] MEDS: ACETAMINOPHEN 500 MG TAB PO SCH (05:58)
--- NOTE | 2021-06-01 06:49 | Orthopedic Progress Note ---
Date of Service June 01, 2021 Assessment & Plan (1) Status post right hip replacement: Overall she is doing well. She denies any much pain in the right hip. She will be seen by physical therapy today for ambulation and range of motion exercises. She is on aspirin for DVT prophylaxis. She will be discharged home later today. She will follow-up with orthopedics in 2 weeks. Cesia Skinner was seen and examined at bedside this morning. Overall she is doing well. She is having too much pain in the right hip. She has already been up and ambulating in the hallways. She has no complaints.. Review of Systems All systems reviewed & are unremarkable except as noted in HPI & below. Physical Exam On physical examination of the right hip, the dressing is clean and dry. Her leg lengths are equal. She has active dorsiflexion plantarflexion of her right ankle.. Results & Data Results & Data Laboratory Results . Diagnostic Findings Postoperative x-rays of the right hip show the prosthesis to be in anatomic alignment without any evidence of fracture, desiccation, or loosening. PG Care Time/CCT Total # of Minutes Spent Total Time Spent with Patient: Total time spent is greater than 50% in coordination of care (as documented) at patient's floor/unit and/or counseling patient: Coding Level of Care Code 81938 Post Operative Follow-Up Diagnoses Status post right hip replacement Z96.641
--- NOTE | 2021-06-01 06:50 | Discharge Summary ---
Date of Service June 01, 2021 Admission HPI (Per Admitting) Brody is a pleasant 89-year-old female whose been dealing with chronic worsening right hip and groin pain. X-rays and clinical examination have been diagnostic for advanced osteoarthritis of the right hip. After failing conservative treatment, she elected proceed with a right total hip arthroplasty. She has a history of a left hip replacement done in the past and has done well with that. Admission Exam (Per Admitting) On physical examination of her right hip she has pain with range of motion. She has pain with flexion. Her leg lengths are equal. Principal Diagnosis Same as "Discharge Diagnosis" noted below under Discharge Instructions. Discharge Exam On physical examination of the right hip, the dressing is clean and dry. Her leg lengths are equal. She has active dorsiflexion plantarflexion of her right ankle.. Discharge Data Procedures Performed Operation Date: 05/31/21 12:45 Actual Procedures p Right Anterior Total Hip Arthroplasty(Right) - Andrei Andujar DO Ordered Studies 05/31/21 FL hip RT 1V Routine Hospital Course (1) Status post right hip replacement: On May 31, [address] [facility] and underwent a right hip replacement without complication. She had a spinal anesthetic. Postoperatively she was started on aspirin for DVT prophylaxis and transferred to the general orthopedic floors. Her hospital course was uneventful. On postop day #1 her vital signs were stable and her pain was well controlled. She was able to participate well with physical therapy doing ambulation and range of motion exercises. She was then discharged back to [facility]. She will follow-up with orthopedics in 2 weeks. PG Care Time/CCT Total # of Minutes Spent Total Time Spent with Patient: Total time spent is greater than 50% in coordination of care (as documented) at patient's floor/unit and/or counseling patient: Discharge Plan Discharge Items Patient Disposition: Transfer Inpatient Rehab Fac Reason For Visit: DJD Right Hip Discharge Diagnosis: Right hip replacement Activity: As commented below Non-emergency contact: Surgeon Call non-emergency contact if: your wound has increased redness and your wound has increased drainage Follow-up/Referrals: Suzanna Higgins [Primary Care Provider] - Diet: Regular Addtl Attending Provider Instructions: Activity and Therapy Recommendations: * If you are using [facility] then therapy will be provided at your home until they feel you have accomplished all of your goals. * If you are using [facility] then Physical Therapy will be provided until they feel you are ready to start Outpatient Physical Therapy. * If you are not using home therapy then Outpatient Physical Therapy should start about 3-5 days from your day of surgery. Therapy will last about 6-10 weeks * You were shown a series of exercises in the hospital. Do these exercises three times each day including the exercises you were shown in physical therapy. * Get up and walk several times each day.~ For the first four weeks, try not to stand or walk for more than one hour at a time. If you do stand or walk for more than one hour, you will not hurt anything, but your leg will likely swell.~~ * As you feel comfortable, you may change from the walker or crutches to a cane and~then to independent walking. Medications: * Narcotic You will likely be sent home from the hospital with a prescription for the narcotic pain medication that worked best throughout your stay. * Aspirin Most patients will be required to take Aspirin 81mg twice a day for 6 weeks after surgery. This is obtained [id number] and a prescription is not necessary. * Other medications may be prescribed for specific circumstances. If you have any questions, please call the office at . * Resume previous home medications unless otherwise instructed TEDs/Elastic Stockings: The white elastic stockings help limit swelling and prevent blood clots from forming in your legs. The more you wear them, the more they work. Wear them for six weeks. Dressing Care: Leave the Silverlon dressing in place for 7 days. After 7 days you may remove the dressing. If the incision is not draining then you may leave the erik open to air. If there is a little bit of drainage or if the erik are getting stuck on your clothing then cover the incision with a dry dressing. The erik will be removed at your 2 week follow-up appointment. Showering: You may shower with the Silverlon dressing in place. Do not let the shower spray hit the dressing directly. Pat the Silverlon dressing dry. If the dressing becomes wet underneath, then simply remove the dressing. Keep the incision dry until you are 7 days out from the day of surgery. After 7 days you may remove the Silverlon dressing and shower with the erik exposed. Let soapy water run over the erik and pat them dry. Do not scrub or soak the incision. Things To Watch For: * Drainage from the incision site that occurs more than one week after your surgery. * Increased redness at the incision site. * Fever above 102 degrees Fahrenheit. * Unusual chest pain or shortness of breath. * Call [facility] at with any of the above problems Follow-Up Visit: Follow-up with Dr. Andujar's PA (Andrei Power) 2-3 weeks after your day of surgery. He will remove your erik and answer any questions. If you have any additional questions or concerns, Dr Andujar is usually in the office at the same time and will be available An appointment was probably scheduled when you signed-up for surgery in the office. If you have any questions call Office Instructions: More detailed instructions as well as Frequently Asked Questions were provided in a folder by our office when you signed-up for surgery. Please review these instructions when you get home. If you have any further questions or concerns, please feel free to call the office at [phone] Pending Studies at Discharge: No Stand-Alone Forms: [facility] Skilled Items Patient informed of condition?: Yes DNR: No Discharge Level of Care: Skilled Communicable Disease: No Discharge Prognosis: Improving Lines: None Urinary Catheter: No Medications and DC Order Prescriptions: New tramadol 50 mg tablet 50 mg PO Q6H PRN (Reason: pain) Qty: 30 RF: 0 aspirin [Adult Aspirin Regimen] 81 mg tablet,delayed release (DR/EC) 81 mg PO BID Qty: 84 RF: 0 Continued diclofenac sodium [Voltaren Arthritis Pain] 1 % gel 2 g topical BID RF: 0 multivitamin [Multiple Vitamins] Tablet 1 tab PO QAM RF: 0 propylthiouracil 50 mg Tablet 50 mg PO BID RF: 0 metoprolol succinate 25 mg tablet extended release 24 hr 25 mg PO QAM RF: 0 acetaminophen [Tylenol Ex Str Rapid Release] 500 mg Tablet 500 mg PO Q6H PRN (Reason: Pain) RF: 0 meloxicam [Mobic] 15 mg tablet 15 mg PO QAM RF: 0 Discharge Orders: Discharge Order (Routine); Ordered 06/01/21 Ordered By: Andrei Andujar Admission Data Admit Date/Time: 05/31/21 15:10 Attending Provider: Andrei Andujar Admit Provider: Andrei Andujar Primary Care Provider: Suzanna Higgins
[2021-06-01] MEDS ORDERED: dexAMETHasone 4 MG TAB PO SCH (08:00)
[2021-06-01] MEDS: DOCUSATE SODIUM 100 MG CAP PO SCH (08:58)
[2021-06-01] MEDS: ASPIRIN 81 MG ECTAB PO SCH (08:58)
[2021-06-01] MEDS ORDERED: METOPROLOL SUCC 25MG EXT REL TAB PO SCH (09:00)
[2021-06-01] MEDS ORDERED: MULTIVITAMIN TAB PO SCH (09:00)
[2021-06-01 11:22] VITALS: BP 127/74; PULSE 66; TEMP 97.7; O2SAT 96
== END 2021-06-01 14:26 ==
LOC: ASU 10:39 → 3N 10:39